=== PATIENT | female | born 1930 | race Asian ===

== ENCOUNTER 2017-07-18 08:18 | Inpatient (IN) | payer OTHER ==
[~2017-07-18] VITALS: Ht 152.4 cm; Wt 65.8 kg
[2017-07-18 09:04] LABS: BASOPHIL % 0.8 % (0-2); PLATELET COUNT 154 x10^3mcL (130-400)
[2017-07-18 09:08] LABS: RED CELL DISTRIBUTION WIDTH 15.1 % (11.5-14.5)
[2017-07-18 09:12] LABS: CALCIUM 9.7 mg/dL (8.5-10.1); CARBON DIOXIDE 32.6 mmol/L (21-32); CHLORIDE SERUM 100 mmol/L (98-107); CREATININE SERUM 1.4 mg/dL (0.6-1.0); GLUCOSE SERUM 171 mg/dL (74-106); POTASSIUM SERUM 3.7 mmol/L (3.5-5.1); SODIUM SERUM 140 mmol/L (136-145)
[2017-07-18 09:17] LABS: ALBUMIN 3.7 g/dL (3.4-5.0); ALKALINE PHOSPHATASE 73 U/L (46-116); ALT/SGPT 35 U/L (14-59); AMYLASE 28 U/L (25-115); AST/SGOT 40 U/L (15-37); BILIRUBIN TOTAL 0.8 mg/dL (0.20-1.00); LIPASE 127 IU/L (73-393)
[2017-07-18 09:38] LABS: microscopic required? YES; urine erythrocyte TRACE (NEGATIVE)
[2017-07-18 14:13] VITALS: BP 119/67
[2017-07-18 14:17] LABS: FREE T4 0.91 ng/dL (0.76-1.46); FREE THYROXINE INDEX 1.9 ug/dL (1.4-4.5); T4(THYROXINE) 6.2 ug/dL (4.7-13.3)
[2017-07-18 14:57] LABS: CHOLESTEROL/HDL RATIO 3.5; MAGNESIUM 2.2 mg/dL (1.8-2.4); PHOSPHOROUS 4.4 mg/dL (2.5-4.9)
[2017-07-18] MEDS ORDERED: SIMVASTATIN10 M1 PO (17:04)
[2017-07-18] MEDS ORDERED: K10 PO (17:04)
[2017-07-18] MEDS ORDERED: TOPROL XL25 MG PO (17:05)
[2017-07-18] MEDS ORDERED: FUROSEMIDE40 MG PO (17:05)
[2017-07-18] MEDS ORDERED: ASPIR 8181 MG PO (17:06)
[2017-07-18] MEDS ORDERED: MULTI-VITAMINS1 TAB PO (17:06)
[2017-07-18] MEDS ORDERED: PLA75 PO (17:06)
[2017-07-18] MEDS ORDERED: ZOLOFT50 MG PO (17:06)
[2017-07-18] MEDS ORDERED: KEPPRA500 MG PO (17:06)
[2017-07-18] MEDS ORDERED: PROBIOTIC1 EAC1 PO (17:07)
[2017-07-18 17:36] VITALS: BP 126/38
[2017-07-18 20:55] VITALS: BP 112/53
[2017-07-19 06:03] VITALS: BP 130/67
[2017-07-19 07:47] LABS: BASOPHIL % 0.2 % (0-2); PLATELET COUNT 122 x10^3mcL (130-400); RED CELL DISTRIBUTION WIDTH 14.6 % (11.5-14.5)
[2017-07-19 07:53] LABS: CALCIUM 8.8 mg/dL (8.5-10.1); CHLORIDE SERUM 105 mmol/L (98-107); CREATININE SERUM 1.1 mg/dL (0.6-1.0); GLUCOSE SERUM 163 mg/dL (74-106); MAGNESIUM 2.2 mg/dL (1.8-2.4); PHOSPHOROUS 3.5 mg/dL (2.5-4.9); POTASSIUM SERUM 4.4 mmol/L (3.5-5.1); SODIUM SERUM 144 mmol/L (136-145)
[2017-07-19 09:53] VITALS: BP 118/41
[2017-07-19 12:00] VITALS: BP 118/41
[2017-07-19 14:24] VITALS: BP 110/47
[2017-07-19 17:30] VITALS: BP 124/46
[2017-07-19 21:30] VITALS: BP 124/36
[2017-07-20 06:15] VITALS: BP 124/52
[2017-07-20 06:18] LABS: BASOPHIL % 0.6 % (0-2); RED CELL DISTRIBUTION WIDTH 14.5 % (11.5-14.5)
[2017-07-20 06:28] LABS: CALCIUM 8.8 mg/dL (8.5-10.1); CARBON DIOXIDE 32.2 mmol/L (21-32); CHLORIDE SERUM 110 mmol/L (98-107); CREATININE SERUM 1.1 mg/dL (0.6-1.0); GLUCOSE SERUM 147 mg/dL (74-106); MAGNESIUM 2.2 mg/dL (1.8-2.4); PHOSPHOROUS 3.7 mg/dL (2.5-4.9); POTASSIUM SERUM 4.2 mmol/L (3.5-5.1); SODIUM SERUM 147 mmol/L (136-145)
[2017-07-20 07:29] LABS: PLATELET COUNT 111 x10^3mcL (130-400)
[2017-07-20 09:03] VITALS: BP 114/47
[2017-07-20 09:13] LABS: T3 TOTAL 0.75 ng/mL
[2017-07-20 11:20] VITALS: Ht 152.4 cm; Wt 65.8 kg
[2017-07-20 12:35] VITALS: BP 112/43
[2017-07-20 13:47] VITALS: BP 100/74
[2017-07-20 17:30] VITALS: BP 107/31
[2017-07-20 21:19] VITALS: BP 110/44
[2017-07-21 05:59] VITALS: BP 124/58
[2017-07-21 07:14] LABS: CALCIUM 8.4 mg/dL (8.5-10.1); CARBON DIOXIDE 29.7 mmol/L (21-32); CHLORIDE SERUM 107 mmol/L (98-107); CREATININE SERUM 0.9 mg/dL (0.6-1.0); GLUCOSE SERUM 158 mg/dL (74-106); POTASSIUM SERUM 3.8 mmol/L (3.5-5.1); SODIUM SERUM 144 mmol/L (136-145)
[2017-07-21 08:04] LABS: BASOPHIL % 0.5 % (0-2); PLATELET COUNT 121 x10^3mcL (130-400); RED CELL DISTRIBUTION WIDTH 14.5 % (11.5-14.5)
[2017-07-21 08:47] VITALS: BP 98/55
[2017-07-21 13:00] VITALS: BP 127/64
[2017-07-21 17:15] VITALS: BP 119/59; BP 97/21
[2017-07-21 21:11] VITALS: BP 132/43
[2017-07-22 05:47] VITALS: BP 131/73
[2017-07-22 06:25] LABS: CALCIUM 8.4 mg/dL (8.5-10.1); CARBON DIOXIDE 32.1 mmol/L (21-32); CHLORIDE SERUM 107 mmol/L (98-107); GLUCOSE SERUM 159 mg/dL (74-106); POTASSIUM SERUM 4.7 mmol/L (3.5-5.1); SODIUM SERUM 138 mmol/L (136-145)
[2017-07-22 07:44] LABS: PLATELET COUNT 125 x10^3mcL (130-400); RED CELL DISTRIBUTION WIDTH 14.8 % (11.5-14.5)
[2017-07-22 08:58] VITALS: BP 111/61
[2017-07-22] MEDS ORDERED: LEV500PM IV (12:41)
[2017-07-22] MEDS ORDERED: CYCLOBENZAPRINE5 MG PO (12:43)
[2017-07-22] MEDS ORDERED: THERA TABS1 TAB PO (12:44)
[2017-07-22] MEDS ORDERED: OSCD PO (12:45)
[2017-07-22 13:28] VITALS: BP 108/60
[2017-07-22 16:49] VITALS: BP 114/68
== END 2017-07-22 21:00 | DRG 871 ==
LOC: ED 08:18 → DU 12:25
PROVIDERS: Emergency Medicine; Family Medicine; Family Medicine Sports Medicine
DX: A41.9 Sepsis, unspecified organism (principal); I50.43 Acute on chronic combined systolic (congestive) and diastolic (congestive) heart failure; G93.41 Metabolic encephalopathy; N39.0 Urinary tract infection, site not specified; G40.89 Other seizures; I42.9 Cardiomyopathy, unspecified; I69.351 Hemiplegia and hemiparesis following cerebral infarction affecting right dominant side; E87.0 Hyperosmolality and hypernatremia; E78.5 Hyperlipidemia, unspecified; E11.65 Type 2 diabetes mellitus with hyperglycemia; M16.0 Bilateral primary osteoarthritis of hip; W18.39XA Other fall on same level, initial encounter; G30.9 Alzheimer's disease, unspecified; F02.80 Dementia in other diseases classified elsewhere, unspecified severity, without behavioral disturbance, psychotic disturbance, mood disturbance, and anxiety; M20.11 Hallux valgus (acquired), right foot; F32.9 Major depressive disorder, single episode, unspecified; E78.00 Pure hypercholesterolemia, unspecified; I11.0 Hypertensive heart disease with heart failure; G90.8 Other disorders of autonomic nervous system; K57.90 Diverticulosis of intestine, part unspecified, without perforation or abscess without bleeding; Z95.810 Presence of automatic (implantable) cardiac defibrillator; Z88.1 Allergy status to other antibiotic agents; Z88.0 Allergy status to penicillin; I69.320 Aphasia following cerebral infarction; Z98.42 Cataract extraction status, left eye; Z98.41 Cataract extraction status, right eye; Y93.89 Activity, other specified; Y92.89 Other specified places as the place of occurrence of the external cause; Y99.8 Other external cause status
CPT/HCPCS: 36600; 82962; 83880; 84439; 97110-GP; 97530-GP; J1100; J1956; J2405; J3010; J3490; J7030; J7620; Q0092

== ENCOUNTER 2017-10-30 22:29 | Inpatient (IN) | payer OTHER ==
[~2017-10-30] VITALS: Ht 144.8 cm; Wt 64.0 kg
[~2017-10-30 22:29] MED LIST: ASPIR 8181 MG PO; CYCLOBENZAPRINE5 MG PO; FUROSEMIDE40 MG PO; KEPPRA500 MG PO; LEV500PM IV; MULTI-VITAMINS1 TAB PO; OSCD PO; PLA75 PO; PROBIOTIC1 EAC1 PO; SIMVASTATIN10 M1 PO; THERA TABS1 TAB PO; TOPROL XL25 MG PO; ZOLOFT50 MG PO
[2017-10-30 22:39] VITALS: Ht 144.8 cm; Wt 64.0 kg
[2017-10-31] VITALS (7 sets, daily range): BP systolic 115–147; BP diastolic 63–90
[2017-10-31 00:13] LABS: PLATELET COUNT 188 x10^3mcL (130-400)
[2017-10-31 00:20] LABS: RED CELL DISTRIBUTION WIDTH 14.6 % (11.5-14.5)
[2017-10-31 00:27] LABS: CALCIUM 8.8 mg/dL (8.5-10.1); CARBON DIOXIDE 26.5 mmol/L (21-32); CHLORIDE SERUM 101 mmol/L (98-107); CREATININE SERUM 1.1 mg/dL (0.6-1.0); GLUCOSE SERUM 271 mg/dL (74-106); POTASSIUM SERUM 3.5 mmol/L (3.5-5.1); SODIUM SERUM 136 mmol/L (136-145)
[2017-10-31 00:41] LABS: ALBUMIN 3.3 g/dL (3.4-5.0); ALKALINE PHOSPHATASE 97 U/L (46-116); ALT/SGPT 25 U/L (14-59); AST/SGOT 38 U/L (15-37); BILIRUBIN TOTAL 0.4 mg/dL (0.20-1.00); FREE T4 0.93 ng/dL (0.76-1.46); TOTAL PROTEIN, SERUM 7.8 g/dL (6.4-8.2)
[2017-10-31] MEDS ORDERED: ALENDRONATE SOD70 M2 PO (01:30)
[2017-10-31 01:45] LABS: UA SPECIFIC GRAVITY 1.015 (1.005-1.035); microscopic required? YES; urine erythrocyte NEGATIVE (NEGATIVE)
[2017-10-31 02:39] LABS: FREE T4 0.99 ng/dL (0.76-1.46); FREE THYROXINE INDEX 2.2 ug/dL (1.4-4.5)
[2017-10-31 04:00] LABS: T3 TOTAL 1.2 ng/mL
[2017-10-31 10:41] LABS: CALCIUM 8.1 mg/dL (8.5-10.1); CHLORIDE SERUM 104 mmol/L (98-107); CREATININE SERUM 0.9 mg/dL (0.6-1.0); GLUCOSE SERUM 147 mg/dL (74-106); MAGNESIUM 1.8 mg/dL (1.8-2.4); PHOSPHOROUS 3.8 mg/dL (2.5-4.9); POTASSIUM SERUM 3.4 mmol/L (3.5-5.1); SODIUM SERUM 141 mmol/L (136-145)
[2017-10-31 11:11] LABS: BASOPHIL % 0.7 % (0-2); PLATELET COUNT 163 x10^3mcL (130-400)
[2017-10-31 11:12] LABS: RED CELL DISTRIBUTION WIDTH 14.6 % (11.5-14.5)
[2017-10-31 15:31] LABS: AMPHETAMINE QUAL UR NONE DETECTED (See below)
[2017-11-01 03:11] VITALS: BP 111/70
[2017-11-01 05:07] LABS: BASOPHIL % 0.7 % (0-2); PLATELET COUNT 151 x10^3mcL (130-400)
[2017-11-01 05:20] LABS: CALCIUM 8.1 mg/dL (8.5-10.1); CARBON DIOXIDE 25.9 mmol/L (21-32); CHLORIDE SERUM 107 mmol/L (98-107); GLUCOSE SERUM 140 mg/dL (74-106); MAGNESIUM 1.6 mg/dL (1.8-2.4); POTASSIUM SERUM 3.9 mmol/L (3.5-5.1); SODIUM SERUM 140 mmol/L (136-145)
[2017-11-01 05:31] LABS: CHOLESTEROL/HDL RATIO 2.7
[2017-11-01 07:36] VITALS: BP 114/79
[2017-11-01 11:30] VITALS: BP 124/58
[2017-11-01 13:45] VITALS: BP 129/70
[2017-11-01 17:15] VITALS: BP 148/61
[2017-11-01 19:30] VITALS: BP 118/56
[2017-11-02 04:53] VITALS: BP 129/67
[2017-11-02 06:28] LABS: BASOPHIL % 0.8 % (0-2); PLATELET COUNT 146 x10^3mcL (130-400)
[2017-11-02 07:03] LABS: RED CELL DISTRIBUTION WIDTH 14.6 % (11.5-14.5)
[2017-11-02 07:27] LABS: CALCIUM 7.9 mg/dL (8.5-10.1); CARBON DIOXIDE 25.2 mmol/L (21-32); CHLORIDE SERUM 107 mmol/L (98-107); GLUCOSE SERUM 137 mg/dL (74-106); PHOSPHOROUS 2.8 mg/dL (2.5-4.9); POTASSIUM SERUM 3.7 mmol/L (3.5-5.1); SODIUM SERUM 142 mmol/L (136-145)
[2017-11-02 09:45] VITALS: BP 123/63
[2017-11-02 15:27] VITALS: BP 101/66
[2017-11-02 17:12] VITALS: BP 122/57
[2017-11-02 20:25] VITALS: BP 109/49
[2017-11-03 05:55] VITALS: BP 123/68
[2017-11-03 06:27] LABS: BASOPHIL % 0.7 % (0-2); PLATELET COUNT 162 x10^3mcL (130-400)
[2017-11-03 07:15] LABS: ALBUMIN 2.6 g/dL (3.4-5.0); ALKALINE PHOSPHATASE 71 U/L (46-116); ALT/SGPT 13 U/L (14-59); AMYLASE 18 U/L (25-115); AST/SGOT 22 U/L (15-37); BILIRUBIN TOTAL 0.5 mg/dL (0.20-1.00); CARBON DIOXIDE 26.1 mmol/L (21-32); CHLORIDE SERUM 104 mmol/L (98-107); GLUCOSE SERUM 127 mg/dL (74-106); LIPASE 117 IU/L (73-393); PHOSPHOROUS 2.9 mg/dL (2.5-4.9); POTASSIUM SERUM 3.9 mmol/L (3.5-5.1); SODIUM SERUM 139 mmol/L (136-145); TOTAL PROTEIN, SERUM 6.7 g/dL (6.4-8.2)
[2017-11-03 09:35] VITALS: BP 113/56
[2017-11-03] MEDS ORDERED: BAC PO (11:43)
[2017-11-03 13:01] VITALS: BP 113/56
[2017-11-03 13:12] VITALS: BP 119/62
[2017-11-03] MEDS ORDERED: K10 PO (13:13)
[2017-11-03] MEDS ORDERED: LIDODERM51 TOP (13:13)
[2017-11-03] MEDS ORDERED: AMIODARONE HCL200 MG PO (13:21)
[2017-11-03 21:40] VITALS: BP 148/67
== END 2017-11-03 22:13 | disposition home or self-care (01) | DRG 308 ==
LOC: ED 22:29 → IC 10-31 00:48 → DU 10-31 00:48 → IC 10-31 02:02 → DU 11-01 13:53
PROVIDERS: Emergency Medicine; Internal Medicine; Internal Medicine Cardiovascular Disease
PROC: 05HM33Z Insertion of Infusion Device into Right Internal Jugular Vein, Percutaneous Approach (ICD-10-PCS; principal; 2017-10-31)
PROC: B543ZZA Ultrasonography of Right Jugular Veins, Guidance (ICD-10-PCS; 2017-10-31)
DX: I47.2 Ventricular tachycardia (principal); N17.0 Acute kidney failure with tubular necrosis; I50.43 Acute on chronic combined systolic (congestive) and diastolic (congestive) heart failure; I69.351 Hemiplegia and hemiparesis following cerebral infarction affecting right dominant side; I42.0 Dilated cardiomyopathy; E44.1 Mild protein-calorie malnutrition; T82.118A Breakdown (mechanical) of other cardiac electronic device, initial encounter; I11.0 Hypertensive heart disease with heart failure; E11.65 Type 2 diabetes mellitus with hyperglycemia; G40.909 Epilepsy, unspecified, not intractable, without status epilepticus; E02 Subclinical iodine-deficiency hypothyroidism; I25.10 Atherosclerotic heart disease of native coronary artery without angina pectoris; I69.320 Aphasia following cerebral infarction; Z79.82 Long term (current) use of aspirin; Z68.34 Body mass index [BMI] 34.0-34.9, adult; Z95.5 Presence of coronary angioplasty implant and graft; Z95.810 Presence of automatic (implantable) cardiac defibrillator; Z79.84 Long term (current) use of oral hypoglycemic drugs
CPT/HCPCS: 36556; 82962; 83880; 84439; 97110-GP; 97116-GP; 97530-GP; A9500; J0282; J1170; J1642; J1644; J1815; J1956; J2060; J2250; J2785; J3475; J7030; J7060; Q0092

== ENCOUNTER 2018-06-28 13:23 | Emergency (ER) | payer OTHER ==
[~2018-06-28] VITALS: Ht 142.2 cm; Wt 55.8 kg
[~2018-06-28 13:23] MED LIST changes: +ALENDRONATE SOD70 M2 PO; +AMIODARONE HCL200 MG PO; +BAC PO; +K10 PO; +LIDODERM51 TOP
[2018-06-28 13:30] VITALS: Ht 142.2 cm; Wt 55.8 kg
[2018-06-28 18:49] VITALS: BP 141/78
== END 2018-06-28 18:49 | disposition home or self-care (01) ==
LOC: ED 13:23
DX: M79.604 Pain in right leg (principal); R22.41 Localized swelling, mass and lump, right lower limb; I50.9 Heart failure, unspecified; E11.9 Type 2 diabetes mellitus without complications
CPT/HCPCS: Q0092

== ENCOUNTER 2018-08-05 15:40 | Emergency (ER) | payer OTHER ==
[~2018-08-05] VITALS: Ht 139.7 cm; Wt 56.2 kg
[2018-08-05 17:18] VITALS: BP 139/71
== END 2018-08-05 17:18 | disposition home or self-care (01) ==
LOC: ED 15:40
DX: M79.671 Pain in right foot (principal); Z88.1 Allergy status to other antibiotic agents; E11.9 Type 2 diabetes mellitus without complications; I50.9 Heart failure, unspecified; Z86.73 Personal history of transient ischemic attack (TIA), and cerebral infarction without residual deficits

== ENCOUNTER 2018-08-05 19:52 | Emergency (ER) | payer OTHER ==
[~2018-08-05] VITALS: Ht 139.7 cm; Wt 56.2 kg
[2018-08-05 20:00] VITALS: Ht 139.7 cm; Wt 56.2 kg
[2018-08-05 22:34] VITALS: BP 144/78
== END 2018-08-05 22:34 | disposition home or self-care (01) ==
LOC: ED 19:52
DX: S00.03XA Contusion of scalp, initial encounter (principal); S09.8XXA Other specified injuries of head, initial encounter; E11.9 Type 2 diabetes mellitus without complications; I50.9 Heart failure, unspecified; Z88.1 Allergy status to other antibiotic agents; W18.39XA Other fall on same level, initial encounter; Y93.89 Activity, other specified; Y92.89 Other specified places as the place of occurrence of the external cause; Y99.8 Other external cause status